=== PATIENT | female | born 1935 | race Caucasian/White ===

== ENCOUNTER 2022-01-09 19:16 | Emergency (ER) | payer BC, MEDICAID ==
[~2022-01-09] VITALS: Ht 170.2 cm; Wt 59.0 kg
--- NOTE | 2022-01-09 19:50 | NUR ---
Patient taken to bed 9.
[2022-01-09 19:55] VITALS: BP 116/68
--- NOTE | 2022-01-09 20:02 | NUR ---
PER [facility] GIVEN NUMBER FOR GRANDSON UNKNOWN NAME: [phone]
[2022-01-09 20:18] LABS: BASOPHILS % (AUTO) 0.2 % (0.0-2.0); MEAN CORPUSCULAR HGB CONC 32 g/dL (33-37)
[2022-01-09] MEDS ORDERED: cefTRIAXone 1,000 MG VIAL ONE (20:54)
--- NOTE | 2022-01-09 21:15 | NUR ---
They will re-drawn blood, due to problem of results.
--- NOTE | 2022-01-09 21:17 | NUR ---
GRANDSON MONIK QUINTANA [phone] DAUGHTER GABI STEPHANE [phone] GRANDDAUGHTER CUONG STEPHANE [phone]
[2022-01-09 21:58] LABS: WHITE BLOOD COUNT (AUTO) 14.7 K/uL (4.8-10.8)
[2022-01-09 21:59] LABS: HEMATOCRIT 41.3 % (36-48); HEMOGLOBIN 13.4 g/dL (12.0-16.0); MEAN CORPUSCULAR VOLUME 98.2 fL (80-94)
[2022-01-09 22:00] LABS: MEAN CORPUSCULAR HEMOGLOBIN 32 pg (27-31); PLATELET COUNT (AUTO) 219 K/uL (140-450)
[2022-01-09 22:01] LABS: LYMPHOCYTES % (AUTO) 4.7 % (20.5-51.1); MONOCYTES % (AUTO) 4.9 % (1.7-9.3); NEUTROPHILS % (AUTO) 90.2 % (42.2-75.2)
[2022-01-09 22:02] LABS: LYMPHOCYTES # (AUTO) 0.7 K/uL (2.5-16.5); MONOCYTES # (AUTO) 0.7 K/uL (0.8-1.0); NEUTROPHILS # (AUTO) 13.2 K/uL (1.8-7.7)
[2022-01-09 22:04] LABS: PROTHROMBIN TIME 12.9 secs (10.8-13.4)
[2022-01-09 22:11] LABS: ANION GAP 26.6 (8-16); CARBON DIOXIDE 20.5 mmol/L (21-32); CHLORIDE 81 mmol/L (98-107); POTASSIUM 3.1 mmol/L (3.5-5.1); SODIUM SERUM 125 mmol/L (136-145); UREA NITROGEN, BLOOD 13 mg/dL (7-18)
[2022-01-09 22:25] LABS: GLUCOSE 889 mg/dL (74-106)
[2022-01-09 22:36] LABS: ASPARTATE AMINOTRANSFERASE 133 U/L (15-37); TOTAL BILIRUBIN 0.5 mg/dL (0.0-1.0)
[2022-01-09 22:37] LABS: ALBUMIN 1.5 g/dL (3.4-5.0)
[2022-01-09] MEDS ORDERED: NACL 0.9% 1,500 ML IV ONE (23:00)
[2022-01-10 00:08] VITALS: BP 95/72
[2022-01-10] MEDS ORDERED: BLOOD GLUCOSE MONITORING 1 DEV DEV FS SCH (00:50)
[2022-01-10] MEDS ORDERED: INSULIN REGULAR, HUMAN 100 UNIT/ML VIAL IV ONE (00:50)
[2022-01-10] MEDS ORDERED: DEXTROSE 50% 50 ML SYR IVP PRN (00:50)
[2022-01-10] MEDS ORDERED: INSULIN REGULAR, HUMAN 100 UNIT in NACL 0.9% 100 ML IV SCH ×2 (00:50)
--- NOTE | 2022-01-10 00:51 | NUR ---
[facility]. [facility] has no further questions.
--- NOTE | 2022-01-10 01:07 | NUR ---
BS 122 , Dr. Ang notified, Verbal hold insulin.
--- NOTE | 2022-01-10 01:28 | NUR ---
Blood for labwork drawn (re-drawn) Patient tolerated fair.
[2022-01-10 01:59] LABS: BASOPHILS # (AUTO) 0.1 K/uL (0.00-0.22); BASOPHILS % (AUTO) 0.6 % (0.0-2.0); HEMATOCRIT 34.5 % (36-48); HEMOGLOBIN 11.4 g/dL (12.0-16.0); LYMPHOCYTES # (AUTO) 0.9 K/uL (2.5-16.5); LYMPHOCYTES % (AUTO) 7.8 % (20.5-51.1); MEAN CORPUSCULAR HEMOGLOBIN 33 pg (27-31); MEAN CORPUSCULAR HGB CONC 33 g/dL (33-37); MEAN CORPUSCULAR VOLUME 98.3 fL (80-94); MONOCYTES # (AUTO) 0.7 K/uL (0.8-1.0); MONOCYTES % (AUTO) 6.2 % (1.7-9.3); NEUTROPHILS # (AUTO) 9.4 K/uL (1.8-7.7); NEUTROPHILS % (AUTO) 85.4 % (42.2-75.2); PLATELET COUNT (AUTO) 204 K/uL (140-450); RED BLOOD CELL COUNT(AUTO) 3.51 MIL/uL (4.20-5.40); RED CELL DISTRIBUTION WIDTH 13.8 % (11.6-13.7)
[2022-01-10 02:16] LABS: ALBUMIN 2.2 g/dL (3.4-5.0); ANION GAP 10.4 (8-16); ASPARTATE AMINOTRANSFERASE 158 U/L (15-37); CHLORIDE 104 mmol/L (98-107); CREATININE 0.5 mg/dL (0.6-1.3); GLUCOSE 108 mg/dL (74-106); POTASSIUM 3.4 mmol/L (3.5-5.1); SODIUM SERUM 140 mmol/L (136-145); TOTAL BILIRUBIN 0.5 mg/dL (0.0-1.0); UREA NITROGEN, BLOOD 13 mg/dL (7-18)
--- NOTE | 2022-01-10 03:21 | NUR ---
BS 115 , Dr. Ang notified.
== END 2022-01-10 08:55 | disposition home or self-care (01) ==
LOC: MED 19:16
DX: D64.9 Anemia, unspecified (principal); Z20.822 Contact with and (suspected) exposure to COVID-19; F03.90 Unspecified dementia, unspecified severity, without behavioral disturbance, psychotic disturbance, mood disturbance, and anxiety
CPT/HCPCS: 36415; 71045; 80053; 83605; 83880; 84484; 85025; 85610; 85730; 87040; 87426; 93005; 96361; 96365; 99291; J0696; J1815; Q0092; 86920